=== PATIENT | male | born 1955 | race Caucasian/White ===

== ENCOUNTER 2020-07-23 10:12 | Emergency (ER) | payer MEDICARE ==
[~2020-07-23] VITALS: Ht 185.4 cm; Wt 117.3 kg
[2020-07-23] MEDS ORDERED: HYDROcodone/acetaminophen 5mg/325mg tablet PO ONE (14:05)
[2020-07-23 14:33] LABS: BASOPHILS % (AUTO) 0.1 % (0-1); HEMATOCRIT 49.2 % (42.0-52.0); LYMPHOCYTES # (AUTO) 2.3 X10'3 (1.1-4.8); MEAN CORPUSCULAR VOLUME 89.9 FL (78-98); MONOCYTES # (AUTO) 1.1 X10'3 (0-0.9); NEUTROPHILS # (AUTO) 4.8 X10'3 (1.8-7.7); NEUTROPHILS % (AUTO) 57.9 % (42-75); RED BLOOD COUNT 5.48 X10'6 (4.70-6.10); WHITE BLOOD COUNT 8.2 X10'3 (4.5-11.0)
[2020-07-23 14:35] LABS: EOSINOPHILS % (AUTO) 0.1 % (0-6); HEMOGLOBIN 16.4 g/dl (14.0-17.9); MEAN CORPUSCULAR HEMOGLOBIN 29.9 PG (27.0-31.0); MEAN CORPUSCULAR HGB CONC 33.3 g/dL (33.0-36.5); MEAN PLATELET VOLUME 11.5 FL (7.4-10.4); MONOCYTES % (AUTO) 13.9 % (2-12); PLATELET COUNT 256 X10'3 (140-440)
[2020-07-23 14:47] LABS: ALANINE AMINOTRANSFERASE 67 U/L (12-78); ALBUMIN 4.2 G/DL (3.4-5.0); ALKALINE PHOSPHATASE 93 IU/L (46-116); ANION GAP 9 (8-16); ASPARTATE AMINO TRANSFERASE 25 U/L (10-37); BILIRUBIN,TOTAL 0.5 MG/DL (0.1-1.0); BLOOD UREA NITROGEN 16 MG/DL (7-18); BUN/CREATININE RATIO 11.9 (5.4-32.0); CALCIUM 9.5 MG/DL (8.5-10.1); CHLORIDE 104 MMOL/L (99-107); CREATININE 1.34 MG/DL (0.60-1.10); GLUCOSE 104 MG/DL (70-104); POTASSIUM 4.4 MMOL/L (3.5-5.1); SODIUM 140 MMOL/L (135-145); TOTAL CARBON DIOXIDE 26.9 MMOL/L (24-32); TOTAL PROTEIN 8.5 G/DL (6.4-8.2); eGFR 54 ML/MIN
[2020-07-23] MEDS ORDERED: COLC0.6T72 PO (15:08)
[2020-07-23] MEDS ORDERED: INDO-12 PO (15:08)
[2020-07-23 15:44] VITALS: BP 139/85
[2020-07-23 16:05] LABS: GIANT PLATELET FEW; LARGE PLATELETS FEW; PLATELET ESTIMATE NORMAL
== END 2020-07-23 15:47 | disposition home or self-care (01) ==
LOC: ER 10:13
DX: M10.072 Idiopathic gout, left ankle and foot (principal); M79.672 Pain in left foot; M79.89 Other specified soft tissue disorders; I12.9 Hypertensive chronic kidney disease with stage 1 through stage 4 chronic kidney disease, or unspecified chronic kidney disease; N18.9 Chronic kidney disease, unspecified; M19.90 Unspecified osteoarthritis, unspecified site; Z98.890 Other specified postprocedural states; Z79.899 Other long term (current) drug therapy
CPT/HCPCS: 36415; 80053; 85008; 85025; 85651; 99283

== ENCOUNTER 2022-07-13 13:03 | Emergency (ER) | payer MEDICARE ==
[~2022-07-13] VITALS: Ht 185.4 cm; Wt 122.0 kg
[~2022-07-13 13:03] MED LIST: COLC0.6T72 PO; INDO-12 PO
--- NOTE | 2022-07-13 14:14 | NUR ---
Pt in ER14. Pt c/o dysuria x2 weeks. Pt c/o R flank pain that is intermitten that is sharp when urinating. Pt states there was blood in the urine. Pt educated to POC. Pt in agreement. Pending MD orders and eval.
[2022-07-13 14:21] LABS: CLARITY,URINE CLOUDY (Clear); COLOR,URINE YELLOW (Yellow); GLUCOSE, URINE NEGATIVE (Neg); KETONES,URINE NEGATIVE (Neg); LEUKOCYTE ESTERASE ,URINE SMALL (Neg); NITRITES, URINE POSITIVE (Neg); OCCULT BLOOD,URINE TRACE-INTACT (Neg); PH,URINE 5.5 (4.8-8.0); PROTEIN,URINE NEGATIVE (Neg); UROBILINOGEN,URINE 0.2 E.U/dL (0.2-1.0)
[2022-07-13 14:27] LABS: UA COLLECTION TYPE CLN CATCH MIDSTREAM
[2022-07-13 14:29] LABS: BACTERIA,URINE 1+ /HPF (Neg); MUCUS STRANDS FEW /LPF (Neg); RBC,URINE 0-2 /HPF (0-2); SQUAMOUS EPITHELIAL CELL,UR FEW /LPF (FEW); WBC CLUMPS,URINE MANY /HPF (NEGATIVE)
[2022-07-13 14:30] LABS: WBC,URINE 50-100 /HPF (0-4)
[2022-07-13 14:48] LABS: BASOPHILS % (AUTO) 0.6 % (0-1); EOSINOPHILS % (AUTO) 0.1 % (0-6); HEMOGLOBIN 13.3 g/dl (14.0-17.9); LYMPHOCYTES # (AUTO) 1.9 X10'3 (1.1-4.8); LYMPHOCYTES % (AUTO) 35.4 % (21-51); MEAN CORPUSCULAR HEMOGLOBIN 29.2 PG (27.0-31.0); MEAN CORPUSCULAR HGB CONC 32.3 g/dL (33.0-36.5); MEAN CORPUSCULAR VOLUME 90.3 FL (78-98); MONOCYTES # (AUTO) 0.7 X10'3 (0-0.9); MONOCYTES % (AUTO) 12.4 % (2-12); NEUTROPHILS # (AUTO) 2.8 X10'3 (1.8-7.7); NEUTROPHILS % (AUTO) 51.5 % (42-75); PLATELET COUNT 267 X10'3 (140-440); RED BLOOD COUNT 4.54 X10'6 (4.70-6.10); RED CELL DISTRIBUTION WIDTH 13.9 % (11.5-14.5); WHITE BLOOD COUNT 5.4 X10'3 (4.5-11.0)
[2022-07-13 15:03] LABS: ALANINE AMINOTRANSFERASE 49 U/L (12-78); ALBUMIN 3.5 G/DL (3.4-5.0); ALBUMIN/GLOBULIN RATIO 0.9 (1.1-1.5); ALKALINE PHOSPHATASE 87 IU/L (46-116); ANION GAP 8 (8-16); ASPARTATE AMINO TRANSFERASE 21 U/L (10-37); BILIRUBIN,TOTAL 0.4 MG/DL (0.1-1.0); BLOOD UREA NITROGEN 16 MG/DL (7-18); BUN/CREATININE RATIO 9.4 (10.0-20.0); CALCIUM 9.3 MG/DL (8.5-10.1); CHLORIDE 106 MMOL/L (99-107); CREATININE 1.71 MG/DL (0.60-1.10); GLUCOSE 98 MG/DL (70-104); SODIUM 144 MMOL/L (135-145); TOTAL CARBON DIOXIDE 29.7 MMOL/L (24-32); TOTAL PROTEIN 7.5 G/DL (6.4-8.2); eGFR 41 ML/MIN
[2022-07-13] MEDS ORDERED: CefTRIAXone 1000mg IM Kit (w/lidocaine diluent) IM ONE (16:35)
[2022-07-13] MEDS ORDERED: SULF1TAB49 PO (16:38)
[2022-07-13 16:49] VITALS: BP 142/91
== END 2022-07-13 16:51 | disposition home or self-care (01) ==
LOC: ER 13:03
DX: N39.0 Urinary tract infection, site not specified (principal); I12.0 Hypertensive chronic kidney disease with stage 5 chronic kidney disease or end stage renal disease; N18.9 Chronic kidney disease, unspecified; M19.90 Unspecified osteoarthritis, unspecified site
CPT/HCPCS: 36415; 74176; 80053; 81001; 85025; 87088; 96372; 99285; J0696

== ENCOUNTER 2022-10-12 11:25 | Emergency (ER) | payer MEDICARE ==
[~2022-10-12] VITALS: Ht 185.4 cm; Wt 117.0 kg
[2022-10-12 11:34] VITALS: BP 163/93
[2022-10-12] MEDS ORDERED: ibuprofen tablet 400 MG TABLET PO ONE (12:10)
[2022-10-12] MEDS ORDERED: clindamycin 150mg capsule PO ONE (12:10)
[2022-10-12] MEDS ORDERED: IBUP-1986 PO (12:12)
[2022-10-12] MEDS ORDERED: AMOX-117 PO (12:12)
[2022-10-12] MEDS ORDERED: amox tr/potassium clavulanate 875/125mg TAB PO ONE (12:15)
== END 2022-10-12 12:52 | disposition home or self-care (01) ==
LOC: ER 11:26
DX: K04.7 Periapical abscess without sinus (principal); I12.9 Hypertensive chronic kidney disease with stage 1 through stage 4 chronic kidney disease, or unspecified chronic kidney disease; N18.9 Chronic kidney disease, unspecified; Z79.899 Other long term (current) drug therapy
CPT/HCPCS: 99283

== ENCOUNTER 2024-11-30 11:27 | Outpatient (CLI) | payer MEDICARE ==
[~2024-11-30 11:27] MED LIST changes: +AMLO5TAB16 PO; +ASPI-1071 PO; +ATOR20TA66 PO; +DEXT15SY PO; -INDO-12 PO
--- NOTE | 2024-11-30 14:50 | RADIOLOGY REPORT ---
CT Chest without intravenous contrast INDICATION: HISTORY OF NICOTINE DEPENDENCE TECHNIQUE: Multidetector spiral CT of the chest was performed from the lung apices to the upper abdom en. Axial, coronal and sagittal multiplanar reformats were performed. Radiation Dose : 1. Chest: CTDI volume is 25 mGy. Dose-length product is 250 mGy*cm The dose indicators for CT are the volume Computed Tomography (CT) Dose Index (CTDIvol) and the Dose Length Product (DLP), and are measured in units of mGy and mGy-cm, respectively. These indicators are not patient dose, but values generated from the CT scanner acquisition factors. The report includes radiation exposure data for exposures received during this examination. Findings: Lower neck: normal Lungs: Multiple bilateral nodules measuring up to 5 mm in the right lower lobe, image 227. This repre sents a LUNG RADS 2 nodule. Follow-up in 1 year. Heart/Vascular Structures: normal Lymph Nodes: No adenopathy Pleura: normal Musculoskeletal: normal Body wall: normal Upper abdomen: normal IMPRESSION: Multiple bilateral nodules measuring up to 5 mm in the right lower lobe, image 227. This represents a LUNG RADS 2 nodule. Follow-up in 1 year.
== END 2024-11-30 23:59 | disposition home or self-care (01) ==
LOC: RAD 11:27
PROVIDERS: ATTEND Family Medicine
DX: Z12.2 Encounter for screening for malignant neoplasm of respiratory organs (principal); R91.8 Other nonspecific abnormal finding of lung field; Z87.891 Personal history of nicotine dependence
CPT/HCPCS: 71271